=== PATIENT | male | born 2000 | race Caucasian/White ===

== ENCOUNTER 2025-09-03 08:26 | Emergency (ER) | payer OTHER, SELFPAY ==
--- NOTE | ~2025-09-03 | XR_ITS ---
XR abdomen/kub 1V 09/03/2025 09:31 INDICATION: Diarrhea and abdomen pain TECHNIQUE: KUB COMPARISON: None FINDINGS: Bowel gas pattern is normal. There is no evidence of free air, mass, organomegaly, ascites or obstruction. No abnormal calculi are seen. The bones appear intact. IMPRESSION: 1: No acute abdominal abnormality identified. Reviewed, dictated and finalized at location O. [facility]
[2025-09-03 08:51] VITALS: BP 135/86; PULSE 81; RESP 16; TEMP 36.7; O2SAT 100
--- NOTE | 2025-09-03 09:15 | ED.ABDPAIN ---
HPI - Abdominal Pain General Chief Complaint: Abdominal Pain Stated Complaint: stomach pain Time Seen by Provider: 09/03/25 09:15 Source: patient Mode of arrival: ambulatory Limitations: no limitations History of Present Illness HPI narrative: 25 yo M presents with diarrhea, nausea for 5 to 6 days. Unable to say how many times a day having a BM. a lot. Had constipation arond xmas. Took a medication to treat constipation but doesnt know what it was. Has had diarrhea since. No significant ABD pain, Cramping before BM. Afebrile. All systems reviewed and negative except as noted above. Related Data Allergies Allergy/AdvReac Type Severity Reaction Status Date / Time No Known Allergies Allergy Mild Verified 09/03/25 09:00 [facility] Comments At time of signature, agree with nursing past medical, surgical, social and family history. There is no relevant family history pertinent to the presenting complaint. Exam Narrative: GENERAL: This is a well-nourished, well-developed patient, in no apparent distress. HEAD: normocephalic, atraumatic. EYES: PERRL. Sclera clear/white. Vision is grossly intact. EARS: External ears normal, auditory canals clear and without drainage, TMs normal without perforation. Hearing grossly intact. NOSE: External nose normal with no obvious nasal discharge, nares without redness, no rhinorrhea. THROAT: Mucous membranes moist, posterior pharynx clear. NECK: Neck supple, non-tender without lymphadenopathy, masses or thyromegaly. CARDIOVASCULAR: Regular rate and rhythm without murmurs, gallops, or rubs. RESPIRATORY: Clear to auscultation. Breath sounds equal bilaterally. No wheezes, rales, or rhonchi. GASTROINTESTINAL: Abdomen soft, non-tender, nondistended. Bowel sounds are active. No hepato-splenomegaly, or palpable masses. No guarding. SKIN: warm, Dry, intact with no suspicious lesions or rash, good texture and turgor. NEURO: awake, alert, and oriented to person, place and time. There were no obvious focal neurologic abnormalities. EXTREMITIES: No joint tenderness, effusion, or edema noted. Course Course Level of Care: Express Care Visit Vital Signs Vital signs: Vital Signs Temperature 36.7 C 09/03/25 08:51 Pulse Rate 81 09/03/25 08:51 Respiratory Rate 16 09/03/25 08:51 Blood Pressure 135/86 09/03/25 08:51 Pulse Oximetry 100 09/03/25 08:51 Temperature 36.7 C 09/03/25 08:51 Pulse Rate 81 09/03/25 08:51 Respiratory Rate 16 09/03/25 08:51 Blood Pressure 135/86 09/03/25 08:51 Pulse Oximetry 100 09/03/25 08:51 Reviewed MDM MDM Narrative Medical decision making narrative: KUB normal. Discussed results with patient. Patient is well-appearing, nontoxic. Recommend Imodium for diarrhea. Will go to the ER for any worsening of symptoms. Differential Diagnosis Differential Diagnosis: Differential diagnostic considerations for acute abdominal pain?include surgical abdominal etiology, ischemic bowel, inflammatory bowel disease, gastritis, PUD, gastroenteritis, cardiac etiology, appendicitis, diverticulitis, bowel obstruction, kidney stone, pyelonephritis, abdominal aortic aneurysm, pancreatitis, constipation, endometriosis. Imaging Data Radiologist's impression: ITS Impressions Abdomen X-Ray 09/03/25 09:40 IMPRESSION: 1: No acute abdominal abnormality identified. Discharge Plan Discharge Clinical Impression: Diarrhea Patient Disposition: Home Condition: Stable Instructions: Acute Diarrhea (ED) Additional Instructions: the x-ray of your abdomen was normal. Take medications as prescribed to treat diarrhea and nausea. Drink at least 64 oz of water a day. See your doctor if diarrhea is not improving. If you have severe pain, concern for dehydration go to the ER. Patient Language: Maltese Prescriptions: New ondansetron 4 mg tablet,disintegrating 4 mg PO Q8H PRN (Reason: nausea and vomiting) Qty: 12 0RF loperamide [Imodium A-D] 2 mg tablet 2 mg PO Q6H PRN (Reason: loose stool) Qty: 20 0RF Rx Instructions: Take 2 tablets initially and then take 1 tablet after each loose stool. Max: 4 tabs/24 hrs Follow-up/Referrals: PHYSICIAN,[facility] [employer] [facility] [Primary Care Provider, Internal Medicine] Stand Alone Forms: Work/School Release IP Time of Disposition: 10:05
[2025-09-03 10:37] LABS: EDINFLUASCREEN Negative (Negative); EDINFLUBSCREEN Negative (Negative)
== END 2025-09-03 10:13 | disposition home or self-care (01) ==
PROVIDERS: Emergency Provider Nurse Practitioner Family
DX: R19.7 Diarrhea, unspecified (principal)
CPT/HCPCS: 74018; 87804; 99203; G0463